=== PATIENT | female | born 1955 | race Caucasian/White ===

== ENCOUNTER 2018-11-30 18:26 | Emergency (ER) | payer SELFPAY ==
[2018-11-30 18:39] VITALS: BP 127/75; PULSE 82; TEMP 98.7; BMI 22.1
--- NOTE | 2018-11-30 18:41 | PDOC ---
Rapid Medical Evaluation Time Seen by Provider: 11/30/18 18:33 Medical Evaluation: 11/30/18 18:33 Pt c/o: red painful lump to left breast x 3 days, no nipple drainage, felt feverish 2 days ago, denies cancer or hx mrsa Pt on brief exam: noted raised semi-fluctulant 3 cm mass to 8 oclock of left breast. no nipple drainage, no dimpling, area warm to touch Pt ordered for: breast u/s pt to proceed to the ED Discharge Disposition - Diagnosis Breast lump - Referrals - Patient Instructions - Post Discharge Activity
[2018-11-30] MEDS ORDERED: ACETAMINOPHEN 1000 MG/100 ML VIAL (NON FORMULARY) IVPB ONE (19:36)
--- NOTE | 2018-11-30 19:36 | PDOC ---
History of Present Illness - General Chief Complaint: Weakness Stated Complaint: WEAKNESS Time Seen by Provider: 11/30/18 18:33 - History of Present Illness Initial Comments: Raya Parham is a 63yo woman with a PMH of severe arthritis (takes ibuprofen and acetaminophen only) who presents with a painful swelling on her left breast since Wednesday. She is [place] speaking, visiting from the [place], and her [id number] is at bedside to translate. Ms Parham states that she recently arrived in [place] on Wednesday to help with her daughter's new baby. She noticed some discomfort in her left breast at that time, but it was not initially very severe. The pain has worsened over the past 4 days, and at this point the whole left breast is red, swollen, and extremely painful. She was unable to wear her normal bra today because of the pain. Ms Parham had a similar area of swelling on her left abdomen about a month ago , but she "squeezed it" at home, and the area healed without any intervention. Over the past few days, Ms Parham has felt more tired than usual and felt warm on Wednesday, but she has no known fevers, no chills, no difficulty eating, no change in bowel habits, and no urinary symptoms. She does not have any known sick contacts though did travel within the past week. Past History - Past Medical History Allergies/Adverse Reactions: Allergies Allergy/AdvReac Type Severity Reaction Status Date / Time No Known Allergies Allergy Verified 11/30/18 18:39 Home Medications: Ambulatory Orders Clindamycin [Cleocin -] 300 mg PO Q8H #30 capsule 11/30/18 COPD: No - Suicide/Smoking/Psychosocial Hx Smoking History: Never smoked Have you smoked in the past 12 months: No Information on smoking cessation initiated: No Hx Alcohol Use: No Drug/Substance Use Hx: No Review of Systems - Review of Systems Comments:: General: No fevers, no chills, no weight or appetite change, no malaise. + Fatigue/sleepiness HEENT: No changes in vision, no changes in hearing, no congestion, no sore throat CV: No chest pain, no palpitations, no LE edema Pulm: No SOB, no cough, no wheezing GI: No nausea or vomiting, no change in bowel habits, no melena : No frequency, no urgency, no dysuria Musc: No back pain, no joint swelling, no recent injury Skin: See HPI Endo: No excessive thirst, no heat/cold intolerance Heme: No unusual bruising or bleeding, no swollen glands Neuro: No syncope, no numbness/tingling, no focal weakness Vasc: No claudication Psych: No recent change in mood, no SI or HI *Physical Exam - Vital Signs Last Vital Signs Temp Pulse Resp BP Pulse Ox 98.7 F 82 18 127/75 100 11/30/18 18:34 11/30/18 18:34 11/30/18 18:34 11/30/18 18:34 11/30/18 18:34 - Physical Exam Comments: General: Comfortable, no acute distress HEENT: Atraumatic, PERRL, EOMI, MMM, voice normal, normal neck ROM Cards: RRR, no murmur appreciated Pulm: Comfortable on room air, clear to auscultation bilaterally Abd: Soft, nontender, nondistended Ext: Atraumatic. No LE edema. ROM intact Vasc: Extremities WWP Skin: Left breast w/ approximately 10cm x 6cm area of erythema and induration, tender to palpation, fluctuant near center of inflammed area. No open wound or drainage. Small, nearly healed wound c/w previous abscess on left upper abdomen. Neuro: A&Ox3, CN grossly intact, normal speech, motor/sensory grossly intact and symmetric Psych: Mood appropriate to situation ED Treatment Course - LABORATORY CBC & Chemistry Diagram: 11/30/18 19:54 11/30/18 19:54 Medical Decision Making - Medical Decision Making 11/30/18 19:36 Raya Parham is a 63yo woman with a PMH of severe arthritis (takes ibuprofen and acetaminophen only) who presents with a painful swelling on her left breast since Wednesday that is consistent with an abscess. She had a previous abscess on the left abdomen one month ago that has now healed; she drained the prior abscess at home and may have spread bacteria to the left breast. - Erythematous, indurated, fluctuant area on left breast c/w abscess - No systemic symptoms currently, VSS, but reporets possible fever and unusual fatigue. CBC, CMP, blood cultures - Discussed with Ms Parham that the abscess needs to be drained. She is very reluctant as the previous abscess healed without intervention. Explained reasons for I&D, and she will discuss with her family - US breast ordered in [facility]. Will obtain as pain limits the breast exam, and underlying mass or other pathology cannot be determined easily 11/30/18 20:47 - US completed. Indicates 2.7 x 1.3cm abscess in the left breast - Updated Ms Parham and her family. All understand that the abscess needs to be drained. Pt now agrees to I&D 11/30/18 21:15 - Labs reviewed. No concerning abnormalities - Incision and drainage of abscess completed. Area cleaned with alcohol, anesthetized with 4cc of 1% lidocaine in a field block. #15 scalpel used to open a 2cm incision with immediate return of approximately 5cc of purulent fluid. Dressed with dry gauze - Clindamycin ordered for treatment of recurrent abscess - Will d/c home with antibiotics, instructions to return for a wound check, referral to clinic. - Discussed home care, return precautions, and importance of returning for a wound cehck in 48hrs with Ms Parham and her family. All understand and agree with the plan. - Increased pain following the I&D, will give toradol prior to discharge. Seen with Alexandra Granado and Estuardo. Juanita Pineda PGY2 *DC/Admit/Observation/Transfer Diagnosis at time of Disposition: Breast lump - Discharge Dispostion Disposition: HOME Condition at time of disposition: Stable Decision to Admit order: No - Prescriptions Prescriptions: Clindamycin [Cleocin -] 300 mg PO Q8H #30 capsule - Referrals Referrals: [facility] [place] [Provider Group] - Patient Instructions Printed Discharge Instructions: DI for Incision and Drainage of a Skin Abscess Additional Instructions: Discharge Instructions: You were seen in the emergency department for an abscess. You had blood tests without any concerning abnormalities. Your ultrasound showed an abscess but nothing else concerning. Home Care and Follow Up: - You have been prescribed an antibiotic called clindamycin - You may use over the counter medications as needed for pain at home. 650- 1000mg acetaminophen (Tylenol) or 600mg ibuprofen (Motrin or Advil) can be used every 6-8 hours. If needed for continued pain, these medications may be alternated every 3-4 hours. For example, if you take ibuprofen at 9am, you may take acetaminophen at noon, ibuprofen at 3pm, etc. - It is strongly recommended that you take ibuprofen with food to help prevent stomach irritation. If you are taking it for more than a day or two, you may consider taking an acid medication such as Pepcid or Xantac, available over the counter, to protect your stomach. This should be taken first thing in the morning 30-60 minutes before any food or medications. - Try using a heating pad or hot compress over the abscess. This may help with the pain and will also help the infection drain out. - It is OK to shower. You may let water run over the wound, but do not scrub at the wound. Pat dry with a towel. - Replace the gauze dressing twice per day or as much as needed. You will probably see some bloody fluid on the gauze - this is expected. There is currently a small piece of gauze that was placed into the wound. Please replace this if it comes out. Use the cotton swab (Q-tip) provided to push the corner of a gauze into the wound. Pack in as much gauze as you are able. - You will need to return to the emergency department in 48 hours (on Wednesday evening or Wednesday morning) for a wound check. - Seek immediate medical care if you have significant worsening of your symptoms , you have spreading redness around the wound, you have fevers to 101F or higher , you have increasing thick or bad-smelling drainage from your wound, or you have any other medical emergency. Instrucciones de descarga: Usted fue atendido en el departamento de emergencias por un absceso. Se le realizaron anlisis de nik sin ninguna anomala preocupante. Lara ultrasonido mostr un absceso macarena nada ms en relacin. Atencin domiciliaria y seguimiento: - Le castanon recetado un antibitico llamado clindamicina. - Puede usar medicamentos de venta dino segn sea necesario para el dolor en el hogar. Se pueden usar 650-1000 mg de paracetamol (Tylenol) o 600 mg de ibuprofeno (Motrin o Advil) cada 6-8 horas. Si es necesario para el dolor continuo, estos medicamentos pueden alternarse cada 3-4 horas. Por ejemplo, si viktoria ibuprofeno a las 9 am, puede mari acetaminofn al medioda, ibuprofeno a las 3 pm, etc. - Se recomienda encarecidamente que tome ibuprofeno con alimentos para ayudar a prevenir la irritacin estomacal. Si lo viktoria por ms de un da o dos, puede considerar mari un medicamento para el cido han Pepcid o Xantac, disponible sin receta, para proteger lara estmago. Hustler debe tomarse a primera hora de la maana 30-60 minutos antes de cualquier alimento o medicamento. - Intente usar gabriel almohadilla trmica o gabriel compresa caliente sobre el absceso. Hustler puede ayudar con el dolor y tambin ayudar a drenar la infeccin. - Est nba ducharse. Puede dejar que el agua corra sobre la herida, macarena no frote la herida. Seque con gabriel toalla. - Reemplace el apsito de gasa dos veces al da o la cantidad necesaria. Probablemente veas un poco de lquido con nik en la gasa, esto es lo que se espera. Actualmente hay un pequeo trozo de gasa que se coloc en la herida. Por favor, reemplace esto si sale. Use el hisopo de algodn (punta Q) provisto para empujar la esquina de gabriel gasa en la herida. Empaca tanta gasa han puedas. - Deber regresar al departamento de emergencias en 48 horas (el viernes por la noche o el sbado por la maana) para gabriel revisin de la herida. - Busque atencin mdica inmediata si tiene un empeoramiento significativo de qi sntomas, si tiene enrojecimiento alrededor de la herida, si tiene fiebre a 101F o ms, si tiene un drenaje ms espeso o con mal olor de la herida, o si tiene alguna otra emergencia mdica. . - Post Discharge Activity
[2018-11-30] MEDS ORDERED: ACETAMINOPHEN INJECTION 100 ML IVPB ONE (19:58)
[2018-11-30 20:05] LABS: PH,URINE 8.5 (5.0-8.0); URINE APPEARANCE CLEAR; URINE BILIRUBIN NEGATIVE (NEGATIVE); URINE COLOR YELLOW; URINE GLUCOSE (UA) NEGATIVE (NEGATIVE); URINE KETONE NEGATIVE (NEGATIVE); URINE LEUK ESTERASE NEGATIVE (NEGATIVE); URINE NITRITE NEGATIVE (NEGATIVE); URINE PROTEIN NEGATIVE (NEGATIVE)
[2018-11-30 20:20] LABS: BASO % 0.4 % (0-2.0); EOS % 0.8 % (0-4.5); HEMATOCRIT 40.1 % (32.4-45.2); HEMOGLOBIN 13.3 GM/dL (10.7-15.3); LYMPH % 27.1 % (8-40); MCH 30.4 pg (25.7-33.7); MCHC 33.1 g/dl (32.0-36.0); MEAN CELL VOLUME 91.7 fl (80-96); MEAN PLT VOLUME 8.5 fl (7.5-11.1); MONO % 7.5 % (3.8-10.2); NEUT % 64.2 % (42.8-82.8); PLATELET COUNT 204 K/MM3 (134-434); RBC 4.37 M/mm3 (3.60-5.2); RDW 14.2 % (11.6-15.6); WHITE BLOOD COUNT 8.7 K/mm3 (4.0-10.0)
[2018-11-30 20:34] LABS: ALBUMIN 3.9 g/dl (3.4-5.0); BILIRUBIN,TOTAL 0.5 mg/dL (0.2-1); BLOOD UREA NITROGEN 12.3 mg/dL (7-18); CALCIUM 9.1 mg/dL (8.5-10.1); CREATININE 0.6 mg/dL (0.55-1.3); POTASSIUM 4.6 mmol/L (3.5-5.1); TOT PROT 8.1 g/dl (6.4-8.2)
[2018-11-30] MEDS ORDERED: CLINDAMYCIN IVPB 300 MG in DEXTROSE 5%-WATER - 48 ML IVPB ONE (20:47)
--- NOTE | 2018-11-30 21:49 | PDOC ---
Documentation entered by Alhaji Gutierrez SCRIBE, acting as scribe for Nora Marte DO. Nora Marte DO: This documentation has been prepared by the Matt bowden Elijah, SCRIBE, under my direction and personally reviewed by me in its entirety. I confirm that the documentation accurately reflects all work , treatment, procedures, and medical decision making performed by me. Attending Attestation - Resident Resident Name: Juanita Pineda - ED Attending Attestation I have performed the following: I have examined & evaluated the patient, The case was reviewed & discussed with the resident, I agree w/resident's findings & plan - HPI HPI: 11/30/18 19:39 Patient is a 63 year old female with a significant past medical history of arthritis and history of abscess in the abdominal wall who presents to the ED with redness and swelling in the Left Breast . The patient reports the pain as localized to the area and a subjective fever. Denies trauma and nipple drainage. Allergies: NKA Social History: Denies Tobacco Usage - Physicial Exam PE: 11/30/18 19:42 Agree with resident's exam - Medical Decision Making 11/30/18 21:46 63-year-old female with pain and swelling to the left breast Exam and ultrasound confirm small left breast abscess Incision and drainage performed by the emergency department resident with successful pus removal Patient will be discharged on antibiotics with 48 hour ED follow-up for wound check
[2018-11-30] MEDS ORDERED: KETOROLAC TROMETHAMINE 30 MG/1 ML VIAL IVPUSH ONE (21:51)
[2018-11-30] MEDS ORDERED: KETOROLAC TROMETHAMINE 30 MG/1 ML VIAL ONE (22:13)
== END 2018-11-30 22:16 | disposition home or self-care (01) ==
LOC: JER 18:26
PROC: 3E033NZ Introduction of Analgesics, Hypnotics, Sedatives into Peripheral Vein, Percutaneous Approach (ICD-10-PCS; principal; 2018-11-30)
PROC: 3E03329 Introduction of Other Anti-infective into Peripheral Vein, Percutaneous Approach (ICD-10-PCS; 2018-11-30)
PROC: 3E0333Z Introduction of Anti-inflammatory into Peripheral Vein, Percutaneous Approach (ICD-10-PCS; 2018-11-30)
DX: N63.0 Unspecified lump in unspecified breast (principal); M19.90 Unspecified osteoarthritis, unspecified site
CPT/HCPCS: 36415; 76642-TC-LT; 80053; 81003; 85025; 87040; 87070; 87086; 87186; 87205; 99283-25; J0131

== ENCOUNTER 2018-12-03 10:44 | Emergency (ER) | payer SELFPAY ==
[2018-12-03 10:48] VITALS: BP 105/66; PULSE 91; TEMP 97.8; BMI 22.1
--- NOTE | 2018-12-03 11:31 | PDOC ---
Suture Removal/Wound Check HPI - History of Present Illness Chief Complaint: Revisit,Wound Recheck Stated Complaint: LT BREAST PROBLEM Time Seen by Provider: 12/03/18 11:06 History Source: Yes: Patient Exam Limitations: Yes: No Limitations [facility] ED Treatment Type of procedure performed on last visit: Yes: I&D of Abscess Tetanus Immunization: Yes: Up to Date Antibiotics Prescribed: Yes - Onset of Previous Treatment Comment:: 12/03/18 12:40 Left lower medial quadrant of breast with mild erythema, and 1 cm wound with no purulent drainage noted on dressing. States packing was removed this morning and washed breast. Reports is much improved, with no pain, minimal drainage, and continue clindamycin as prescribed. Came for wound check as directed. Past History - Travel Traveled outside of the country in the last 30 days: No Close contact w/someone who was outside of country & ill: No - Past Medical History Allergies/Adverse Reactions: Allergies Allergy/AdvReac Type Severity Reaction Status Date / Time No Known Allergies Allergy Verified 12/03/18 10:48 Home Medications: Ambulatory Orders Clindamycin [Cleocin -] 300 mg PO Q8H #30 capsule 11/30/18 COPD: No - Suicide/Smoking/Psychosocial Hx Smoking History: Never smoked Have you smoked in the past 12 months: No Hx Alcohol Use: No Drug/Substance Use Hx: No Suture Removal/Wound Check PE - Physical Exam Laceration/Wound Check Symptoms: reports: None Current Severity Level: None Maximum Severity Level: None *Review of Systems - Review of Systems Able to Perform ROS?: Yes Constitutional: Yes: See HPI. No: Symptoms Reported, Chills, Fever, Malaise HEENTM: No: Symptoms Reported Respiratory: No: Symptoms reported Musculoskeletal: No: Symptoms Reported Integumentary: Yes: Symptoms Reported, See HPI, Lesions All Other Systems: Reviewed and Negative *Physical Exam - Vital Signs Last Vital Signs Temp Pulse Resp BP Pulse Ox 97.8 F 91 H 18 105/66 99 12/03/18 10:46 12/03/18 10:46 12/03/18 10:46 12/03/18 10:46 12/03/18 10:46 - Physical Exam General Appearance: Yes: Nourished, Appropriately Dressed, Apparent Distress, Mild Distress HEENT: positive: AMADO, Normal ENT Inspection, TMs Normal, Pharynx Normal Neck: positive: Supple, Lymphadenopathy (R), Lymphadenopathy (L) Respiratory/Chest: positive: Lungs Clear, Normal Breath Sounds Medical Decision Making - Medical Decision Making 12/03/18 12:41 Left breast abscess healing well, continue antibiotics and follow-up as needed *DC/Admit/Observation/Transfer Diagnosis at time of Disposition: Wound check, abscess - Discharge Dispostion Disposition: HOME Condition at time of disposition: Stable Decision to Admit order: No - Referrals - Patient Instructions Additional Instructions: Continue medication - Post Discharge Activity
== END 2018-12-03 11:30 | disposition home or self-care (01) ==
LOC: JERFT 10:44
DX: Z51.89 Encounter for other specified aftercare (principal); N63.0 Unspecified lump in unspecified breast
CPT/HCPCS: 99281-25